=== PATIENT | female | born 1945 | race Caucasian/White ===

== ENCOUNTER 2016-06-18 21:58 | Observation (INO) ==
[2016-06-18] MEDS ORDERED: Ipratropium/Albuterol Neb 3 ML IH ONE (22:16)
[2016-06-18] MEDS ORDERED: Ipratropium/Albuterol Neb 3 ML ONE (22:18)
[2016-06-18 22:57] LABS: Basophils % 0.2 %; Eosinophils % 0.7 %; Hematocrit 38.1 % (35.3-44.9); Hemoglobin 13.1 g/dL (11.5-15.4); Immature Granulocytes % 0.7 % (0-4); Lymphocytes # 1.5 K/mcL (0.6-4.6); Lymphocytes % 26.8 %; Mean Corpuscular HGB Conc 34.4 g/dL (31.6-35.5); Mean Corpuscular Hemoglobin 31.2 pg (28.0-33.3); Mean Corpuscular Volume 90.7 fL (83.0-100.0); Mean Platelet Volume 9.8 fL (9.4-12.4); Monocytes # 0.4 K/mcL (0.0-1.3); Monocytes % 6.7 %; Neutrophils # 3.6 K/mcL (1.6-8.9); Platelet Count 175 K/mcL (140-400); Red Cell Distribution Width 14.1 % (11.5-14.5); Segmented Neutrophils % 64.9 %
[2016-06-18 23:04] LABS: INR 1.1
[2016-06-18 23:07] LABS: Activated Partial Thrombo Time 31.8 Seconds (26.0-36.0)
--- NOTE | 2016-06-18 23:11 | Emergency Department Note ---
Disposition Clinical Impression: Acute exacerbation of chronic obstructive airways disease, Febrile illness Disposition: Admitted As Inpatient Condition: Fair Referrals: Solitario Simms MD [Primary Care Provider] - Forms: ED Satisfaction Letter Time of Disposition: 00:18 ([facility]) SOB HPI - General Chief Complaint: ED Shortness of Breath/Dyspnea Stated Complaint: productive cough, diarrhea Time Seen by Provider: 06/18/16 22:05 Source: patient Mode of arrival: ambulatory Limitations: no limitations Nursing Notes Reviewed: Yes Vital Signs Reviewed: Yes - History of Present Illness Approximate 4-6 weeks patient has been having fever chills cough congestion runny nose when she is on antibiotics he seemed to go away so she comes off Lasix seemed to recur she is seen her family physician multiple times for this she denies any diarrhea at this time she has had intermittent episode of diarrhea she denies any blurred vision double vision or loss of vision numbness tingling weakness recent weight gain or weight loss Pt Subjective Complaint: shortness of breath Onset (ago): week(s) (4-6) Context: recent illness, occurred during exertion Severity: moderate Consistency/Duration: intermittent, gradually worsening Improves with: oxygen, bronchodilators Worsens with: exertion, movement, inspiration Known history of: COPD, congestive heart failure Associated symptoms: Reports: fever, cough, wheezing, sputum production, diaphoresis. Denies: chest pain, pain with inspiration, orthopnea, lower extremity pain, polyuria, polydipsia, parasthesias, palpitations, hemoptysis, nausea/vomiting, syncope, abdominal pain, rash, sense of impending doom Treatment prior to arrival: oxygen, bronchodilator - Related Data Home Medications Medication Instructions Recorded Confirmed Allopurinol [Zyloprim 300 MG] 300 mg PO DAILY #0 12/11/14 06/18/16 Aspirin Enteric Coated [Aspirin EC] 81 mg PO DAILY 12/11/14 06/18/16 Lisinopril [Zestril] 20 mg PO DAILY #0 12/11/14 06/18/16 Albuterol Sulfate 1 inh PO TID 12/12/14 06/18/16 Colestipol HCl [Colestid] 2 tab PO DAILY #0 12/12/14 06/18/16 Primidone [Mysoline] 2 tab PO QPM #0 12/12/14 06/18/16 Proair Hfa 2 puff PO Q4HWA PRN 12/12/14 06/18/16 Ammonium Lactate [Amlactin] 0 gm TP TID 06/18/16 06/18/16 Budesonide/Formoterol 160/4.5 2 puff IH BIDR 06/18/16 06/18/16 [Symbicort 160/4.5] Cholecalciferol (D-3) [Vitamin D] 1,000 unit PO DAILY 06/18/16 06/18/16 Dicyclomine [Bentyl] 20 mg PO QID 06/18/16 06/18/16 FLUoxetine HCl [Fluoxetine HCl] 80 mg PO QDPC 06/18/16 06/18/16 FluocinoNIDE 0.05% CRM [Lidex] 1 appl TP QDPC 06/18/16 06/18/16 Fluticasone Propionate Nasal 50 mcg NS QDPC 06/18/16 06/18/16 [Flonase] Guaifenesin/Dm/Pseudoephedrine 1 each PO QID 06/18/16 06/18/16 [Capmist Dm Tablet] HYDROcodone/Acet 10/325 mg [[place] 1 tab PO Q8HR PRN 06/18/16 06/18/16 10-325 mg] Ipratropium/Albuterol Sulfate 4 gm IH QID 06/18/16 06/18/16 [Combivent Respimat Inhal [place]] Metoprolol Tartrate [Lopressor] 50 mg PO BID 06/18/16 06/18/16 Mv W-Ca/Iron/FA/Lutein/Hrb#179 1 each PO QDPC 06/18/16 06/18/16 [Jere Multivit For Women Caplet] Omeprazole [PriLOSEC] 40 mg PO DAILY 06/18/16 06/18/16 Ondansetron ODT [Zofran ODT] 4 mg SL Q4HR PRN 06/18/16 06/18/16 Pravastatin Sodium [Pravachol] 80 mg PO QDPC 06/18/16 06/18/16 Pregabalin [Lyrica] 225 mg PO BID 06/18/16 06/18/16 Psyllium [Metamucil Fiber Singles 1 packet PO TID 06/18/16 06/18/16 Packet] Quetiapine Fumarate [Seroquel] 50 mg PO QPM 06/18/16 06/18/16 Roflumilast [Daliresp] 500 mcg PO QDPC 06/18/16 06/18/16 Sucralfate [Carafate] 1 gm PO BID 06/18/16 06/18/16 Triamcinolone Acet 0.1% CRM 1 appl TP ONCE 06/18/16 06/18/16 [Kenalog] Previous Rx's Medication Instructions Recorded Magnesium Oxide [Mag-Ox] 400 mg PO BID #14 tablet 12/15/14 Allergies Allergy/AdvReac Type Severity Reaction Status Date / Time No Known Allergies Allergy Verified 04/27/16 16:18 All systems ED: reviewed and negative except as stated. Constitutional: Reports: fever, chills, weakness Eyes: Denies: eye pain, eye discharge ENT ED: Reports: congestion. Denies: ear pain, throat pain, dental pain Cardiovascular: Denies: chest pain, palpitations Respiratory: Reports: cough, dyspnea, wheezes, sputum production Gastrointestinal: Reports: nausea, vomiting. Denies: abdominal pain Genitourinary: Denies: urgency, dysuria, frequency Musculoskeletal: Denies: back pain, neck pain Integumentary: Denies: abrasion, lesions Neurological: Reports: weakness. Denies: headache Psychiatric: Denies: anxiety Endocrine: Reports: fatigue Hematological/Lymphatic: Denies: easy bleeding Allergic/Immunologic: Denies: facial swelling Past Medical History - Past Medical History Attestation: Yes The following information was validated with the patient. 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 - Social History Smoking Status: Former smoker Smokeless Tobacco Status: No Alcohol use: Reports: none Drug use: Reports: none Physical Exam - General Limitations: no limitations General appearance: alert, anxious, in distress - Head Head exam: atraumatic, normocephalic, normal inspection - Eye Eye exam: Present: normal appearance, PERRL, EOMI - ENT ENT exam: normal exam, normal oropharynx, mucous membranes moist, normal external ear exam - Neck Neck exam: Present: normal inspection, full ROM, trachea midline - Chest Chest inspection: Present: normal inspection, symmetric chest wall rise - Respiratory Respiratory exam: Present: normal lung sounds bilaterally - Cardiovascular Cardiovascular exam: Present: regular rate, normal rhythm, normal heart sounds - Abdominal Exam Abdominal exam: Present: soft, Non-Tender, normal bowel sounds - Extremities Exam Extremities exam: Present: normal inspection, full ROM, normal capillary refill. Absent: tenderness, joint swelling - Expanded Lower Extremity Exam Neurovascular/Tendon exam: Present: normal capillary refill, normal fine/light touch Gait: observed and normal - Back Exam Back exam: Present: normal inspection, full ROM. Absent: muscle spasm - Neurological Exam Neurological exam: Present: alert, oriented X3, CN II-XII intact - Psychiatric Psychiatric exam: Present: anxious - Skin Skin exam: Present: warm, intact, normal color, diaphoresis Course Course Narrative: Patient seen and examined patient was given a DuoNeb treatment 2 after evaluation IV was established she was given antibiotics patient was admitted transferred to [facility] stable condition spoke with family about findings noting that she has had symptoms off and on for 6 weeks the flu swab was negative strongly suspect etiology to be viral Vital Signs O2 Sat by Pulse Oximetry 99 06/18/16 21:58 Temperature 96.3 F L 06/18/16 22:14 Pulse Rate 93 06/18/16 23:14 Respiratory Rate 22 06/18/16 23:14 Blood Pressure 124/81 06/18/16 23:14 O2 Sat by Pulse Oximetry 96 06/18/16 23:14 Oxygen Delivery Oxygen Delivery Nasal Cannula Shortness of Breath/Dyspnea - Differential Diagnosis Likely: acute exacerbation of chronic obstructive airways disease, pneumonia, asthma with exacerbation - Medical Records Medical records reviewed: Yes I reviewed the patient's medical records. - Lab Data Lab results reviewed: Yes I reviewed the patient's lab results. Result diagrams: 06/18/16 22:36 06/18/16 22:36 Lab Results 06/18/16 06/18/16 06/18/16 Range/Units 22:36 22:36 22:36 WBC 5.5 (4.3-11.1) K/mcL RBC 4.20 (3.82-4.97) M/mcL Hgb 13.1 (11.5-15.4) g/dL Hct 38.1 (35.3-44.9) % MCV 90.7 (83.0-100.0) fL MCH 31.2 (28.0-33.3) pg MCHC 34.4 (31.6-35.5) g/dL RDW 14.1 (11.5-14.5) % Plt Count 175 (140-400) K/mcL MPV 9.8 (9.4-12.4) fL Immature Gran % 0.7 (0-4) % Seg Neutrophils % 64.9 % Lymphocytes % 26.8 % Monocytes % 6.7 % Eosinophils % 0.7 % Basophils % 0.2 % Neutrophils # 3.6 (1.6-8.9) K/mcL Lymphocytes # 1.5 (0.6-4.6) K/mcL Monocytes # 0.4 (0.0-1.3) K/mcL Eosinophils # 0.0 (0.0-0.6) K/mcL Basophils # 0.0 (0.0-0.2) K/mcL PT 12.0 (9.4-12.1) Seconds INR 1.1 APTT 31.8 (26.0-36.0) Seconds Sodium 141 (136-145) mEq/L Potassium 4.1 (3.5-4.5) mEq/L Chloride 107 (98-109) mEq/L Carbon Dioxide 20 (19-29) mEq/L BUN 8 (7-20) mg/dL Creatinine 0.91 (0.57-1.11) mg/dL Est GFR ( Amer) > 60 (> 60) Est GFR (Non-Af Amer) > 60 (> 60) BUN/Creatinine Ratio 9 (6-26) Glucose 123 H (70-99) mg/dL Calculated Osmolality 292 (280-300) Calcium 9.3 (8.6-10.8) mg/dL Troponin I (0-0.03) ng/mL B-Natriuretic Peptide (0-100) pg/mL 06/18/16 06/18/16 Range/Units 22:36 22:36 WBC (4.3-11.1) K/mcL RBC (3.82-4.97) M/mcL Hgb (11.5-15.4) g/dL Hct (35.3-44.9) % MCV (83.0-100.0) fL MCH (28.0-33.3) pg MCHC (31.6-35.5) g/dL RDW (11.5-14.5) % Plt Count (140-400) K/mcL MPV (9.4-12.4) fL Immature Gran % (0-4) % Seg Neutrophils % % Lymphocytes % % Monocytes % % Eosinophils % % Basophils % % Neutrophils # (1.6-8.9) K/mcL Lymphocytes # (0.6-4.6) K/mcL Monocytes # (0.0-1.3) K/mcL Eosinophils # (0.0-0.6) K/mcL Basophils # (0.0-0.2) K/mcL PT (9.4-12.1) Seconds INR APTT (26.0-36.0) Seconds Sodium (136-145) mEq/L Potassium (3.5-4.5) mEq/L Chloride (98-109) mEq/L Carbon Dioxide (19-29) mEq/L BUN (7-20) mg/dL Creatinine (0.57-1.11) mg/dL Est GFR ( Amer) (> 60) Est GFR (Non-Af Amer) (> 60) BUN/Creatinine Ratio (6-26) Glucose (70-99) mg/dL Calculated Osmolality (280-300) Calcium (8.6-10.8) mg/dL Troponin I 0.03 (0-0.03) ng/mL B-Natriuretic Peptide 516 H (0-100) pg/mL - Radiology Data Radiology results reviewed: Yes I reviewed the patient's radiology results. ITS Impressions Chest X-Ray 06/18/16 22:17 IMPRESSION: No acute cardiopulmonary disease. D/ / Sagar Hines MD / Sagar Hines MD Interpreting Provider: Sagar Hines MD - EKG Data EKG attestation: Yes I reviewed and interpreted this EKG. EKG results narrative: Sinus rhythm no ST segment elevation or T wave inversion noted rate 77 NV 160 QRS 137 QT 461 excess -36 Critical Care Time Critical Care Time: No
[2016-06-18 23:14] LABS: BUN/Creatinine Ratio 9 (6-26); Blood Urea Nitrogen 8 mg/dL (7-20); Calcium 9.3 mg/dL (8.6-10.8); Carbon Dioxide 20 mEq/L (19-29); Chloride 107 mEq/L (98-109); Glucose 123 mg/dL (70-99); Osmolality,Calculated 292 (280-300); Potassium 4.1 mEq/L (3.5-4.5); Sodium 141 mEq/L (136-145); eGFR For African Americans > 60 (> 60); eGFR For Non-African Americans > 60 (> 60)
[2016-06-18] MEDS ORDERED: 0.9 % Sodium Chloride 1,000 ML IVC SCH (23:45)
[2016-06-18] MEDS ORDERED: Azithromycin 500 MG in D5% in Water 250 ML IVPB ONE (23:58)
[2016-06-18] MEDS ORDERED: CefTRIAXone 1,000 MG in D5% in Water (Mini-Bag+) 100 ML IVPB STA (23:58)
[2016-06-19] MEDS ORDERED: Ondansetron ODT 4 MG TAB.RAPDIS SL PRN (01:35)
[2016-06-19] MEDS ORDERED: Naloxone 0.4 MG/ML INJ IVP PRN (01:35)
[2016-06-19] MEDS: Ipratropium/Albuterol Neb 3 ML IH SCH ×4 (05:27→23:47)
[2016-06-19 06:05] LABS: Basophils % 0.2 %; Eosinophils % 0.2 %; Hematocrit 38.8 % (35.3-44.9); Hemoglobin 13.3 g/dL (11.5-15.4); Immature Granulocytes % 1.3 % (0-4); Lymphocytes # 0.4 K/mcL (0.6-4.6); Lymphocytes % 9.8 %; Mean Corpuscular HGB Conc 34.3 g/dL (31.6-35.5); Mean Corpuscular Hemoglobin 31.4 pg (28.0-33.3); Mean Corpuscular Volume 91.5 fL (83.0-100.0); Mean Platelet Volume 10.1 fL (9.4-12.4); Monocytes # 0.1 K/mcL (0.0-1.3); Monocytes % 1.6 %; Neutrophils # 3.9 K/mcL (1.6-8.9); Platelet Count 161 K/mcL (140-400); Red Blood Count 4.24 M/mcL (3.82-4.97); Red Cell Distribution Width 14.3 % (11.5-14.5); Segmented Neutrophils % 86.9 %
[2016-06-19 06:11] LABS: Bilirubin,Urine Negative (Negative); Blood,Urine Moderate (Negative); Clarity,Urine Clear (Clear); Color,Urine Dark Yellow (Yellow); Glucose,Urine (UA) Normal (Normal); Ketones,Urine Negative (Negative); Leukocyte Esterase,Urine Negative (Negative); Nitrite,Urine Negative (Negative); PH,Urine 5.5 pH Units (5.0-8.0); Protein,Urine >=300 mg/dL (Neg-Trace); Specific Gravity,Urine >= 1.030 (1.010-1.025); Urobilinogen,Urine Normal (Normal)
[2016-06-19 06:17] LABS: BUN/Creatinine Ratio 10 (6-26); Blood Urea Nitrogen 10 mg/dL (7-20); Carbon Dioxide 18 mEq/L (19-29); Chloride 105 mEq/L (98-109); Glucose 209 mg/dL (70-99); Osmolality,Calculated 295 (280-300); Potassium 4.3 mEq/L (3.5-4.5); Sodium 140 mEq/L (136-145); eGFR For African Americans > 60 (> 60); eGFR For Non-African Americans 56 (> 60)
[2016-06-19] MEDS: *HR* HYDROcodone/Acet 10/325 mg TABLET PO PRN ×2 (06:34→15:48)
[2016-06-19 06:52] LABS: Granular Casts,Urine Few per lpf (None Seen); Hyaline Casts,Urine Few per lpf (None-Few)
[2016-06-19 06:53] LABS: Bacteria,Urine Few per hpf (None-Few); Mucus,Urine Moderate (Few); Squamous Epithelial Cell,Urine Moderate per lpf (None-Few)
[2016-06-19 06:54] LABS: RBC,Urine 0-3 per hpf (0-3); WBC,Urine 0-3 per hpf (0-3)
[2016-06-19] MEDS ORDERED: (Roflumilast [Daliresp] 500 MCG) PO SCH (09:00)
[2016-06-19] MEDS ORDERED: Pregabalin 75 MG CAPSULE PO SCH (09:00)
[2016-06-19] MEDS ORDERED: [UNRECOGNIZED DRUG - OTHER] PO SCH (09:00)
[2016-06-19] MEDS ORDERED: COLESTIPOL HCL PO SCH (09:00)
[2016-06-19] MEDS: Aspirin Enteric Coated 81 MG Tablet PO SCH (09:02)
[2016-06-19] MEDS: Sucralfate 1 GM TABLET PO SCH ×2 (09:03→21:56)
[2016-06-19] MEDS: Fluticasone Propionate Nasal 50 MCG/SPRAY BOTTLE NS SCH (09:03)
[2016-06-19] MEDS: Magnesium Oxide 400 MG TABLET PO SCH ×2 (09:04→22:04)
[2016-06-19] MEDS: Psyllium 1 PACKET POWD.PACK PO SCH ×3 (09:04→21:58)
[2016-06-19] MEDS: Cholecalciferol (D-3) 1,000 UNIT TABLET PO SCH (09:07)
[2016-06-19] MEDS: FLUoxetine 20 MG CAPSULE PO SCH (09:07)
[2016-06-19] MEDS: Multivit/Ca/Min/Fe/FA 1 TAB TABLET PO SCH (09:07)
[2016-06-19] MEDS: Lisinopril 20 MG TABLET PO SCH (09:08)
[2016-06-19] MEDS: CefTRIAXone 1,000 MG in D5% in Water (Mini-Bag+) 100 ML IVPB SCH (09:10)
[2016-06-19] MEDS: Albuterol 2.5 MG/3 ML NEBULIZER IH PRN (09:12)
[2016-06-19] MEDS: Budesonide/Formoterol 160/4.5 MDI IH SCH ×2 (09:12→23:47)
[2016-06-19] MEDS: Ammonium Lactate 30 APPL/225 GM BOTTLE TP SCH ×3 (09:12→21:57)
[2016-06-19] MEDS: FluocinoNIDE 0.05% CRM 15 GM TUBE TP SCH (09:13)
--- NOTE | 2016-06-19 09:16 | Electrocardiograph Report ---
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
[2016-06-19] MEDS: Pregabalin 75 MG CAPSULE PO SCH ×2 (10:37→21:56)
--- NOTE | 2016-06-19 12:29 | Internal Med History&Physical ---
Date of Encounter: 06/19/16 Time of Encounter: 12:05 Assessment and Plan (1) Diarrhea Current visit: Yes Status: Acute Suspect viral gastroenteritis. Will continue with IV fluids and do further workup as needed. Qualifiers: Diarrhea type: unspecified type Qualified Code(s): R19.7 - Diarrhea, unspecified (2) Hypertension Current visit: No Status: Chronic Continue lisinopril and Lopressor. Qualifiers: Hypertension type: essential hypertension Qualified Code(s): I10 - Essential (primary) hypertension (3) Hypomagnesemia Current visit: No Status: Acute Magnesium level was 1.4 on 12/15/2014. We will recheck in a.m. (4) Acute exacerbation of chronic obstructive airways disease Current visit: Yes Status: Acute Continue Symbicort, DuoNeb's, and albuterol nebs with Solu-Medrol. Internal Medicine - H&P: HPI Chief complaint: Cough and diarrhea Admitted From: Home Plans for Post Hospital Care: Home History of present illness: Ms. Boston is a 71 year old female who came to emergency room stating she developed diarrhea the evening of June 17. It seemed to worsen over the next 24 hours. She denies melena or hematochezia. She had nausea but no vomiting. She had a cough productive of slight amount of yellow sputum. She had sensation of fevers and chills with a headache. She was evaluated in emergency room and felt to have exacerbation of COPD. She was admitted to [facility] floor for ongoing care needs. She was hospitalized last at [facility] November 2014 with diarrhea. She has a diagnosis of irritable bowel syndrome. She has had cholecystectomy and has rare GERD symptoms. She denies other disorders of her liver or exocrine pancreas. Past Med Surg Social Fam HX - Past Medical History Medical history: arthritis, asthma, COPD, CVA, diabetes, GERD, hyperlipidemia, hypertension, kidney stones, RA, renal disease, other Psychiatric history: anxiety, depression - Past Surgical History Surgical History: cataract, cholecystectomy, hysterectomy, orthopedic, other, other - Social History Smoking Status: Former smoker Smokeless Tobacco Status: No Alcohol use: none Drug use: none - Family History Mother Living Status: Age at : 76 Cause of : ANURESYM Hx Family Cardiac Disorders: Yes (OPEN HEART SURGERY) Hx Family Endocrine Disorder: Yes Internal Medicine - H&P: Meds Allopurinol [Zyloprim 300 MG] 300 mg PO DAILY #0 12/11/14 [History] Aspirin Enteric Coated [Aspirin EC] 81 mg PO DAILY 12/11/14 [History] Lisinopril [Zestril] 20 mg PO DAILY #0 12/11/14 [History] Albuterol Sulfate 1 inh PO TID 12/12/14 [History] Colestipol HCl [Colestid] 2 tab PO DAILY #0 12/12/14 [History] Primidone [Mysoline] 2 tab PO QPM #0 12/12/14 [History] Proair Hfa 2 puff PO Q4HWA PRN 12/12/14 [History] Magnesium Oxide [Mag-Ox] 400 mg PO BID #14 tablet 12/15/14 [Rx] Ammonium Lactate [Amlactin] 0 gm TP TID 06/18/16 [History] Budesonide/Formoterol 160/4.5 [Symbicort 160/4.5] 2 puff IH BIDR 06/18/16 [ History] Cholecalciferol (D-3) [Vitamin D] 1,000 unit PO DAILY 06/18/16 [History] Dicyclomine [Bentyl] 20 mg PO QID 06/18/16 [History] FLUoxetine HCl [Fluoxetine HCl] 80 mg PO QDPC 06/18/16 [History] FluocinoNIDE 0.05% CRM [Lidex] 1 appl TP QDPC 06/18/16 [History] Fluticasone Propionate Nasal [Flonase] 50 mcg NS QDPC 06/18/16 [History] Guaifenesin/Dm/Pseudoephedrine [Capmist Dm Tablet] 1 each PO QID 06/18/16 [ History] HYDROcodone/Acet 10/325 mg [[place] 10-325 mg] 1 tab PO Q8HR PRN 06/18/16 [History ] Ipratropium/Albuterol Sulfate [Combivent Respimat Inhal [place]] 4 gm IH QID 06/18 [History] Metoprolol Tartrate [Lopressor] 50 mg PO BID 06/18/16 [History] Mv W-Ca/Iron/FA/Lutein/Hrb#179 [Jere Multivit For Women Caplet] 1 each PO QDPC 06/18/16 [History] Omeprazole [PriLOSEC] 40 mg PO DAILY 06/18/16 [History] Ondansetron ODT [Zofran ODT] 4 mg SL Q4HR PRN 06/18/16 [History] Pravastatin Sodium [Pravachol] 80 mg PO QDPC 06/18/16 [History] Pregabalin [Lyrica] 225 mg PO BID 06/18/16 [History] Psyllium [Metamucil Fiber Singles Packet] 1 packet PO TID 06/18/16 [History] Quetiapine Fumarate [Seroquel] 50 mg PO QPM 06/18/16 [History] Roflumilast [Daliresp] 500 mcg PO QDPC 06/18/16 [History] Sucralfate [Carafate] 1 gm PO BID 06/18/16 [History] Triamcinolone Acet 0.1% CRM [Kenalog] 1 appl TP ONCE 06/18/16 [History] Allergies No Known Allergies Allergy (Verified 04/27/16 16:18) All Systems PM: A 10-system review of systems was performed and is negative for pertinent findings except as documented above in the HPI. Review of systems: Gen.: Her weight has decreased slightly from 104.734 kg on 12/15/2014 to 100.244 kg at present. Cardiovascular: She has a history of hypertension and thinks she may have heart failure. She denies NM, angina, anginal equivalents, or known DVT or pulmonary embolus. Respiratory: She smoked from age [age] up to 2 packs per day. She wears oxygen at home almost . GI: As per history of present illness : She has had urinary retention in the past but it resolved. She has had kidney stones in the past. She denies other kidney or bladder disorders Neurologic: She claims a CVA occurred in 2007 but with only transient dysphasia with right arm weakness. She had near-complete recovery except for stuttering and memory loss. She has a diagnosis of tremor and takes primidone. She denies seizures. Endocrine: She has "borderline diabetes". Hemoglobin A1c was 5.2% on 2015. She has hyperlipidemia but no known thyroid disease. Hematology/oncology: She denies blood disorders, cancers or anemia Psychiatric: She has anxiety and depression but no other mental health disorders. [place] skeletal. She claims DJD, rheumatoid arthritis and history of gout. - Constitutional Vitals: Temp Pulse Resp BP Pulse Ox 98.4 F 85 18 132/74 100 06/19/16 11:15 06/19/16 11:15 06/19/16 11:15 06/19/16 11:15 06/19/16 11:15 Exam: General: She is a well-developed well-nourished female who appears in minimal distress at present time HEENT: Head is atraumatic, normocephalic. Eyes: EOMI. There is no scleral icterus. Mouth: Mucosa is moist. Neck: Supple and nontender. There is no thyromegaly or adenopathy noted. Heart: Regular without murmurs gallops or ectopics. Lungs: No wheezes or crackles are heard. Abdomen: Soft and nontender. No masses or guarding are noted. Extremities: There is no cyanosis edema or clubbing noted. Dorsalis pedis and posterior tibial pulses are trace - 1+ palpable bilaterally. Neurologic: Mental status: She is talkative and a good historian. Cranial nerves: Smile is symmetric. Forehead wrinkles bilaterally. Tongue protrudes midline. EOMI. She is hard of hearing. Motor: There is no pronator drift. Cerebellar: Finger to nose is intact bilaterally. Skin: Warm and dry Internal Med - H&P Results - Labs CBC & Chem 7: 06/19/16 04:43 06/19/16 04:43 Labs: Short CBC 06/19/16 Range/Units 04:43 WBC 4.5 (4.3-11.1) K/mcL Hgb 13.3 (11.5-15.4) g/dL Hct 38.8 (35.3-44.9) % Plt Count 161 (140-400) K/mcL Neutrophils # 3.9 (1.6-8.9) K/mcL BMP 06/19/16 04:43 Sodium 140 Potassium 4.3 Chloride 105 Carbon Dioxide 18 L BUN 10 Creatinine 0.98 Glucose 209 H Calcium 9.0 Urine 06/19/16 Range/Units 05:40 Urine Color Dark Yellow (Yellow) Urine Clarity Clear (Clear) Urine pH 5.5 (5.0-8.0) pH Units Ur Specific [place] >= 1.030 H (1.010-1.025) Urine Protein >=300 H (Neg-Trace) mg/dL Urine Glucose (UA) Normal (Normal) mg/dL
[2016-06-19] MEDS: 0.9 % Sodium Chloride 1,000 ML IVC SCH (13:38)
[2016-06-19] MEDS ORDERED: Azithromycin 500 MG in D5% in Water 250 ML IVPB SCH (14:00)
[2016-06-19] MEDS: PredniSONE 10 MG TABLET PO SCH (17:24)
[2016-06-19] MEDS: Primidone 50 MG TABLET PO SCH (17:26)
[2016-06-19] MEDS: [UNRECOGNIZED DRUG - OTHER] PO SCH (22:04)
[2016-06-19] MEDS: COLESTIPOL HCL PO SCH (22:04)
[2016-06-20] MEDS: 0.9 % Sodium Chloride 1,000 ML IVC SCH (01:25)
[2016-06-20] MEDS: *HR* HYDROcodone/Acet 10/325 mg TABLET PO PRN ×2 (01:35→23:55)
[2016-06-20] MEDS: Ipratropium/Albuterol Neb 3 ML IH SCH ×4 (04:03→21:42)
[2016-06-20 06:46] LABS: Basophils % 0.1 %; Eosinophils % 0.1 %; Hematocrit 33.1 % (35.3-44.9); Hemoglobin 11.3 g/dL (11.5-15.4); Immature Granulocytes % 0.7 % (0-4); Lymphocytes # 1.3 K/mcL (0.6-4.6); Mean Corpuscular HGB Conc 34.1 g/dL (31.6-35.5); Mean Corpuscular Hemoglobin 31.7 pg (28.0-33.3); Mean Platelet Volume 10.1 fL (9.4-12.4); Monocytes # 0.7 K/mcL (0.0-1.3); Monocytes % 10.9 %; Neutrophils # 4.6 K/mcL (1.6-8.9); Platelet Count 159 K/mcL (140-400); Red Blood Count 3.56 M/mcL (3.82-4.97); Red Cell Distribution Width 14.5 % (11.5-14.5); Segmented Neutrophils % 68.2 %
[2016-06-20 07:01] LABS: Alanine Aminotransferase 21 Units/L (0-55); Albumin 3.6 g/dL (3.5-5.0); Albumin/Globulin Ratio 1.6 (1.1-2.2); Alkaline Phosphatase 78 Units/L (38-126); Aspartate Amino Transferase 29 Units/L (5-34); BUN/Creatinine Ratio 15 (6-26); Bilirubin,Total 0.4 mg/dL (0.2-1.2); Blood Urea Nitrogen 14 mg/dL (7-20); Calcium 8.4 mg/dL (8.6-10.8); Carbon Dioxide 20 mEq/L (19-29); Chloride 110 mEq/L (98-109); Globulin 2.3 g/dL (2.4-3.5); Glucose 141 mg/dL (70-99); Magnesium 1.6 mg/dL (1.6-2.6); Osmolality,Calculated 295 (280-300); Sodium 141 mEq/L (136-145); Total Protein 5.9 g/dL (6.0-8.3); Uric Acid 5.3 mg/dL (2.6-6.0); eGFR For African Americans > 60 (> 60); eGFR For Non-African Americans 58 (> 60)
[2016-06-20] MEDS: (Roflumilast [Daliresp] 500 MCG) PO SCH (08:34)
[2016-06-20] MEDS: COLESTIPOL HCL PO SCH ×2 (08:34→22:45)
[2016-06-20] MEDS: Ammonium Lactate 30 APPL/225 GM BOTTLE TP SCH ×3 (08:35→23:17)
[2016-06-20] MEDS: FLUoxetine 20 MG CAPSULE PO SCH (08:35)
[2016-06-20] MEDS: PredniSONE 10 MG TABLET PO SCH ×2 (08:35→17:33)
[2016-06-20] MEDS: Aspirin Enteric Coated 81 MG Tablet PO SCH (08:36)
[2016-06-20] MEDS: Pregabalin 75 MG CAPSULE PO SCH ×2 (08:36→22:00)
[2016-06-20] MEDS: Multivit/Ca/Min/Fe/FA 1 TAB TABLET PO SCH (08:37)
[2016-06-20] MEDS: Magnesium Oxide 400 MG TABLET PO SCH ×2 (08:37→22:40)
[2016-06-20] MEDS: FluocinoNIDE 0.05% CRM 15 GM TUBE TP SCH (08:37)
[2016-06-20] MEDS: CefTRIAXone 1,000 MG in D5% in Water (Mini-Bag+) 100 ML IVPB SCH (08:38)
[2016-06-20] MEDS: Lisinopril 20 MG TABLET PO SCH (08:38)
[2016-06-20] MEDS: Cholecalciferol (D-3) 1,000 UNIT TABLET PO SCH (08:38)
[2016-06-20] MEDS: Sucralfate 1 GM TABLET PO SCH ×2 (08:39→17:33)
[2016-06-20] MEDS: [UNRECOGNIZED DRUG - OTHER] PO SCH (08:40)
[2016-06-20] MEDS: Fluticasone Propionate Nasal 50 MCG/SPRAY BOTTLE NS SCH (08:40)
[2016-06-20] MEDS: Psyllium 1 PACKET POWD.PACK PO SCH ×4 (08:40→22:42)
[2016-06-20] MEDS: Budesonide/Formoterol 160/4.5 MDI IH SCH ×2 (09:58→21:37)
--- NOTE | 2016-06-20 10:46 | Internal Med Progress Note ---
Date of Encounter: 06/20/16 Time of Encounter: 10:35 - Assessment and plan (1) Diarrhea Current Visit: Yes Status: Acute Assessment and plan: June 20. Improved. Suspect viral gastroenteritis. Discontinue Rocephin and Zithromax to avoid complication. Qualifiers: Diarrhea type: unspecified type Qualified Code(s): R19.7 - Diarrhea, unspecified (2) Hypertension Current Visit: No Status: Chronic Assessment and plan: June 20. Continue lisinopril and Lopressor. Qualifiers: Hypertension type: essential hypertension Qualified Code(s): I10 - Essential (primary) hypertension (3) Hypomagnesemia Current Visit: No Status: Acute Assessment and plan: June 20. Magnesium level normal at 1.6. (4) Acute exacerbation of chronic obstructive airways disease Current Visit: Yes Status: Acute Assessment and plan: June 20. Continue Symbicort, DuoNeb's, albuterol nebs and prednisone. We will discontinue antibiotics. Anticipate discharge home tomorrow. - Subjective Interval history: June 20. Her diarrhea has improved. She still feels dyspneic. - Constitutional Vitals: Temp Pulse Resp BP Pulse Ox 97.8 F 68 18 112/56 100 06/20/16 10:24 06/20/16 10:24 06/20/16 10:24 06/20/16 10:24 06/20/16 10:24 Exam: She has prolonged expiratory phase and mild diffuse wheezing. Heart tones are difficult to hear. Extremities show no edema. I reviewed her medications and lab results. Internal Medicine: Result - Labs CBC & Chem 7: 06/20/16 05:51 06/20/16 05:51 Labs: Short CBC 06/20/16 Range/Units 05:51 WBC 6.7 (4.3-11.1) K/mcL Hgb 11.3 L D (11.5-15.4) g/dL Hct 33.1 L (35.3-44.9) % Plt Count 159 (140-400) K/mcL Neutrophils # 4.6 (1.6-8.9) K/mcL BMP 06/20/16 05:51 Sodium 141 Potassium 4.0 Chloride 110 H Carbon Dioxide 20 BUN 14 Creatinine 0.95 Glucose 141 H Calcium 8.4 L Liver Function 06/20/16 Range/Units 05:51 Total Bilirubin 0.4 (0.2-1.2) mg/dL AST 29 (5-34) Units/L ALT 21 (0-55) Units/L Alkaline Phosphatase 78 (38-126) Units/L Albumin 3.6 (3.5-5.0) g/dL - ABG Interpretation ABG results: PT/INR, D-dimer PT 12.0 Seconds (9.4-12.1) 06/18/16 22:36 Consult Discharge Plan - Plan Referrals: Solitario Simms MD [Primary Care Provider] - 1 week
[2016-06-20] MEDS ORDERED: [UNRECOGNIZED DRUG - OTHER] PO PRN (13:14)
[2016-06-20] MEDS: Primidone 50 MG TABLET PO SCH (17:33)
[2016-06-20] MEDS: Albuterol 2.5 MG/3 ML NEBULIZER IH PRN (21:37)
[2016-06-21] MEDS: Ipratropium/Albuterol Neb 3 ML IH SCH ×4 (04:52→21:53)
[2016-06-21 05:50] LABS: Basophils % 0.3 %; Eosinophils % 0.4 %; Hematocrit 35.3 % (35.3-44.9); Hemoglobin 11.7 g/dL (11.5-15.4); Immature Granulocytes % 1.2 % (0-4); Lymphocytes % 25.6 %; Mean Corpuscular HGB Conc 33.1 g/dL (31.6-35.5); Mean Corpuscular Hemoglobin 31.1 pg (28.0-33.3); Mean Corpuscular Volume 93.9 fL (83.0-100.0); Mean Platelet Volume 9.8 fL (9.4-12.4); Monocytes # 0.7 K/mcL (0.0-1.3); Monocytes % 8.6 %; Neutrophils # 4.9 K/mcL (1.6-8.9); Platelet Count 197 K/mcL (140-400); Red Blood Count 3.76 M/mcL (3.82-4.97); Red Cell Distribution Width 14.5 % (11.5-14.5); Segmented Neutrophils % 63.9 %
[2016-06-21 06:18] LABS: Magnesium 1.7 mg/dL (1.6-2.6); Potassium 3.9 mEq/L (3.5-4.5)
[2016-06-21] MEDS: Cholecalciferol (D-3) 1,000 UNIT TABLET PO SCH (08:23)
[2016-06-21] MEDS: FLUoxetine 20 MG CAPSULE PO SCH (08:23)
[2016-06-21] MEDS: Pregabalin 75 MG CAPSULE PO SCH ×2 (08:23→21:14)
[2016-06-21] MEDS: Lisinopril 20 MG TABLET PO SCH (08:23)
[2016-06-21] MEDS: Multivit/Ca/Min/Fe/FA 1 TAB TABLET PO SCH (08:24)
[2016-06-21] MEDS: Sucralfate 1 GM TABLET PO SCH ×2 (08:24→18:03)
[2016-06-21] MEDS: PredniSONE 10 MG TABLET PO SCH ×2 (08:24→17:57)
[2016-06-21] MEDS: Aspirin Enteric Coated 81 MG Tablet PO SCH (08:24)
[2016-06-21] MEDS: Magnesium Oxide 400 MG TABLET PO SCH (08:24)
[2016-06-21] MEDS: Psyllium 1 PACKET POWD.PACK PO SCH ×4 (08:24→21:15)
[2016-06-21] MEDS: (Roflumilast [Daliresp] 500 MCG) PO SCH (08:29)
[2016-06-21] MEDS: Fluticasone Propionate Nasal 50 MCG/SPRAY BOTTLE NS SCH (08:31)
[2016-06-21] MEDS: Ammonium Lactate 30 APPL/225 GM BOTTLE TP SCH ×3 (08:36→21:17)
[2016-06-21] MEDS: FluocinoNIDE 0.05% CRM 15 GM TUBE TP SCH (08:36)
--- NOTE | 2016-06-21 10:18 | Internal Med Progress Note ---
Date of Encounter: 06/21/16 Time of Encounter: 10:05 - Assessment and plan (1) Diarrhea Current Visit: Yes Status: Acute Assessment and plan: June 20. Improved. Suspect viral gastroenteritis. Discontinue Rocephin and Zithromax to avoid complication. June 21. Send stool for lactoferrin and C. difficile. We will hold magnesium oxide for now Qualifiers: Diarrhea type: unspecified type Qualified Code(s): R19.7 - Diarrhea, unspecified (2) Hypertension Current Visit: No Status: Chronic Assessment and plan: June 20. Continue lisinopril and Lopressor. June 21. Change lisinopril to Cozaar to avoid ACEI induced cough. Continue Lopressor. Qualifiers: Hypertension type: essential hypertension Qualified Code(s): I10 - Essential (primary) hypertension (3) Hypomagnesemia Current Visit: No Status: Acute Assessment and plan: June 20. Magnesium level normal at 1.6. June 21. We will hold magnesium oxide to avoid diarrhea (4) Acute exacerbation of chronic obstructive airways disease Current Visit: Yes Status: Acute Assessment and plan: June 20. Continue Symbicort, DuoNeb's, albuterol nebs and prednisone. We will discontinue antibiotics. Anticipate discharge home tomorrow. June 21. Will increase prednisone and continue Symbicort, DuoNeb, and when necessary albuterol nebs. - Subjective Interval history: June 20. Her diarrhea has improved. She still feels dyspneic. June 21. She states her diarrhea has worsened again. She still feels dyspneic although slightly improved from yesterday. - Constitutional Vitals: Temp Pulse Resp BP Pulse Ox 97.8 F 71 18 126/65 98 06/21/16 06:43 06/21/16 06:43 06/21/16 06:43 06/21/16 06:43 06/21/16 04:52 Exam: She has prolonged expiratory phase with wheezing mostly in the anterior upper airway/trachea. No inspiratory crackles are heard. Extremities show no edema. I reviewed her medications and lab results. Internal Medicine: Result - Labs CBC & Chem 7: 06/21/16 05:35 06/21/16 05:35 Labs: Short CBC 06/21/16 Range/Units 05:35 WBC 7.7 (4.3-11.1) K/mcL Hgb 11.7 (11.5-15.4) g/dL Hct 35.3 (35.3-44.9) % Plt Count 197 (140-400) K/mcL Neutrophils # 4.9 (1.6-8.9) K/mcL BMP 06/21/16 05:35 Sodium 139 Potassium 3.9 Chloride 106 Carbon Dioxide 22 BUN 23 H Creatinine 1.09 Glucose 103 H Calcium 9.0 - ABG Interpretation ABG results: PT/INR, D-dimer PT 12.0 Seconds (9.4-12.1) 06/18/16 22:36 Consult Discharge Plan - Plan Referrals: Solitario Simms MD [Primary Care Provider] - 1 week
[2016-06-21] MEDS: *HR* HYDROcodone/Acet 10/325 mg TABLET PO PRN (10:30)
[2016-06-21] MEDS: Budesonide/Formoterol 160/4.5 MDI IH SCH ×2 (11:09→21:53)
[2016-06-21] MEDS: COLESTIPOL HCL PO SCH ×2 (11:34→21:17)
[2016-06-21] MEDS: Primidone 50 MG TABLET PO SCH (17:59)
[2016-06-22] MEDS: Ipratropium/Albuterol Neb 3 ML IH SCH ×2 (03:42→09:54)
[2016-06-22] MEDS: Sucralfate 1 GM TABLET PO SCH (06:01)
[2016-06-22 08:02] VITALS: BP 136/80
[2016-06-22] MEDS: Psyllium 1 PACKET POWD.PACK PO SCH ×2 (08:30→13:30)
[2016-06-22] MEDS: Fluticasone Propionate Nasal 50 MCG/SPRAY BOTTLE NS SCH (08:30)
[2016-06-22] MEDS: Aspirin Enteric Coated 81 MG Tablet PO SCH (08:31)
[2016-06-22] MEDS: Pregabalin 75 MG CAPSULE PO SCH (08:31)
[2016-06-22] MEDS: Multivit/Ca/Min/Fe/FA 1 TAB TABLET PO SCH (08:32)
[2016-06-22] MEDS: FLUoxetine 20 MG CAPSULE PO SCH (08:32)
[2016-06-22] MEDS: Cholecalciferol (D-3) 1,000 UNIT TABLET PO SCH (08:33)
[2016-06-22] MEDS: PredniSONE 10 MG TABLET PO SCH (08:33)
[2016-06-22] MEDS: (Roflumilast [Daliresp] 500 MCG) PO SCH (08:34)
[2016-06-22] MEDS: COLESTIPOL HCL PO SCH (08:34)
[2016-06-22] MEDS: Ammonium Lactate 30 APPL/225 GM BOTTLE TP SCH ×2 (08:42→13:30)
[2016-06-22] MEDS: FluocinoNIDE 0.05% CRM 15 GM TUBE TP SCH (08:42)
--- NOTE | 2016-06-22 09:43 | Discharge Summary ---
Date of Encounter: 06/22/16 Time of Encounter: 09:30 - Discharge Diagnosis (1) Diarrhea Priority: Primary Status: Acute Qualifiers: Diarrhea type: unspecified type Qualified Code(s): R19.7 - Diarrhea, unspecified (2) Acute exacerbation of chronic obstructive airways disease Priority: Secondary Status: Acute (3) Hypertension Priority: Secondary Status: Chronic Qualifiers: Hypertension type: essential hypertension Qualified Code(s): I10 - Essential (primary) hypertension (4) Hypomagnesemia Priority: Secondary Status: Resolved - Discharge Medications Prescriptions: Losartan Potassium [Cozaar] 50 mg PO DAILY #30 tab PredniSONE 20 mg PO BIDWM #6 tablet Home Medications: Allopurinol [Zyloprim 300 MG] 300 mg PO DAILY #0 12/11/14 [History] Aspirin Enteric Coated [Aspirin EC] 81 mg PO DAILY 12/11/14 [History] Albuterol Sulfate 1 inh PO TID 12/12/14 [History] Colestipol HCl [Colestid] 2 tab PO DAILY #0 12/12/14 [History] Primidone [Mysoline] 2 tab PO QPM #0 12/12/14 [History] Proair Hfa 2 puff PO Q4HWA PRN 12/12/14 [History] Ammonium Lactate [Amlactin] 0 gm TP TID 06/18/16 [History] Budesonide/Formoterol 160/4.5 [Symbicort 160/4.5] 2 puff IH BIDR 06/18/16 [ History] Cholecalciferol (D-3) [Vitamin D] 1,000 unit PO DAILY 06/18/16 [History] Dicyclomine [Bentyl] 20 mg PO QID 06/18/16 [History] FLUoxetine HCl [Fluoxetine HCl] 80 mg PO QDPC 06/18/16 [History] FluocinoNIDE 0.05% CRM [Lidex] 1 appl TP QDPC 06/18/16 [History] Fluticasone Propionate Nasal [Flonase] 50 mcg NS QDPC 06/18/16 [History] Guaifenesin/Dm/Pseudoephedrine [Capmist Dm Tablet] 1 each PO QID 06/18/16 [ History] HYDROcodone/Acet 10/325 mg [[place] 10-325 mg] 1 tab PO Q8HR PRN 06/18/16 [History ] Ipratropium/Albuterol Sulfate [Combivent Respimat Inhal [place]] 4 gm IH QID 06/18 [History] Metoprolol Tartrate [Lopressor] 50 mg PO BID 06/18/16 [History] Mv W-Ca/Iron/FA/Lutein/Hrb#179 [[place] Multivit For Women Caplet] 1 each PO QDPC 06/18/16 [History] Omeprazole [PriLOSEC] 40 mg PO DAILY 06/18/16 [History] Ondansetron ODT [Zofran ODT] 4 mg SL Q4HR PRN 06/18/16 [History] Pravastatin Sodium [Pravachol] 80 mg PO QDPC 06/18/16 [History] Pregabalin [Lyrica] 225 mg PO BID 06/18/16 [History] Quetiapine Fumarate [Seroquel] 50 mg PO QPM 06/18/16 [History] Roflumilast [Daliresp] 500 mcg PO QDPC 06/18/16 [History] Sucralfate [Carafate] 1 gm PO BID 06/18/16 [History] Triamcinolone Acet 0.1% CRM [Kenalog] 1 appl TP ONCE 06/18/16 [History] Losartan Potassium [Cozaar] 50 mg PO DAILY #30 tab 06/22/16 [Rx] PredniSONE 20 mg PO BIDWM #6 tablet 06/22/16 [Rx] Psyllium [Metamucil Fiber Singles Packet] 1 packet PO TID PRN #0 06/22/16 [Rx] Allergies/Adverse Reactions: Allergies No Known Allergies Allergy (Verified 04/27/16 16:18) Date of admission: 06/19/16 01:10 Primary care physician: Solitario Simms MD - Patient Status Disposition: Home, Self-Care Condition: Fair Overall status at discharge: patient is progressing back to baseline - Discharge Instructions Follow Up With: Solitario Simms MD [Primary Care Provider] - 1 week - Diet and Activity Activity: resume usual activities as tolerated, wear oxygen at all times Diet: advance to your usual diet Hospital course: Ms. Boston is a 71 year old female who came to emergency room stating she developed diarrhea the evening of June 17. It seemed to worsen over the next 24 hours. She denies melena or hematochezia. She had nausea but no vomiting. She had a cough productive of slight amount of yellow sputum. She had sensation of fevers and chills with a headache. She was evaluated in emergency room and felt to have exacerbation of COPD. She was admitted to [facility] for ongoing care needs. Initial orders were written by the emergency room physician. I saw her on June 19 and performed the history and physical. She was given IV fluids. Her diarrhea lessened significantly during her hospital stay. I discontinued her magnesium oxide to avoid worsening the diarrhea. Her magnesium level was normal at 1.7 on 06/21/2016. She was given steroids and her COPD was improved by time of discharge. She will continue with prednisone for 3 additional days after discharge for COPD exacerbation. On June 22 I felt she was stable for discharge home. She will follow with her PCP Dr. Simms within 1 week. - Time Spent with Patient Total time spent providing and/or coordinating discharge services: - Constitutional Vitals: Temp Pulse Resp BP Pulse Ox 97.3 F L 70 18 136/80 99 06/22/16 08:00 06/22/16 08:00 06/22/16 08:00 06/22/16 08:00 06/22/16 08:00
[2016-06-22] MEDS: Budesonide/Formoterol 160/4.5 MDI IH SCH (09:54)
== END 2016-06-22 15:33 | disposition home or self-care (01) ==
LOC: EMEROOPIK 21:58 → INPPIK 21:58
PROVIDERS: ADMIT Internal Medicine; ATTEND Internal Medicine

== ENCOUNTER 2019-01-05 20:58 | Observation (INO) ==
[2019-01-05] MEDS ORDERED: Ondansetron 4 MG/2 ML VIAL IVP ONE (21:08)
[2019-01-05] MEDS ORDERED: *HR* HYDROmorphone (PF) 1 MG/ML SYRINGE IVP ONE (21:08)
[2019-01-05] MEDS ORDERED: 0.9 % Sodium Chloride 1,000 ML IVC ONE (21:13)
[2019-01-05] MEDS ORDERED: Ipratropium/Albuterol Neb 3 ML IH ONE (21:15)
[2019-01-05] MEDS ORDERED: methylPREDNISolone 125 MG/2 ML VIAL IVP ONE (21:15)
[2019-01-05 21:33] LABS: Basophils % 0.1 %; Eosinophils # 0.1 K/mcL (0.0-0.6); Eosinophils % 0.5 %; Hematocrit 40.8 % (35.3-44.9); Hemoglobin 14.1 g/dL (11.5-15.4); Immature Granulocytes % 2.6 % (0-4); Lymphocytes # 0.5 K/mcL (0.6-4.6); Lymphocytes % 5.9 %; Mean Corpuscular HGB Conc 34.6 g/dL (31.6-35.5); Mean Corpuscular Hemoglobin 31.9 pg (28.0-33.3); Mean Corpuscular Volume 92.3 fL (83.0-100.0); Mean Platelet Volume 10.4 fL (9.4-12.4); Monocytes # 0.4 K/mcL (0.0-1.3); Monocytes % 4.8 %; Neutrophils # 7.9 K/mcL (1.6-8.9); Platelet Count 176 K/mcL (140-400); Red Blood Count 4.42 M/mcL (3.82-4.97); Red Cell Distribution Width 13.5 % (11.5-14.5); Segmented Neutrophils % 86.1 %; White Blood Count 9.2 K/mcL (4.3-11.1)
[2019-01-05 21:36] LABS: INR 1.1; Prothrombin Time 12.2 Seconds (9.4-12.1)
[2019-01-05 21:39] LABS: Activated Partial Thrombo Time 33.2 Seconds (26.0-36.0)
[2019-01-05 21:49] LABS: Troponin I < 0.03 ng/mL (< 0.04)
[2019-01-05 21:50] LABS: BUN/Creatinine Ratio 19 (6-26); Blood Urea Nitrogen 20 mg/dL (8-23); Calcium 9.3 mg/dL (8.6-10.3); Carbon Dioxide 28 mEq/L (23-29); Chloride 97 mEq/L (98-107); Glucose 111 mg/dL (70-105); Osmolality,Calculated 283 (280-300); Potassium 4.4 mEq/L (3.5-5.1); Sodium 135 mEq/L (136-145); eGFR For African Americans 60 (> 60); eGFR For Non-African Americans 49 (> 60)
[2019-01-05 21:51] LABS: Albumin/Globulin Ratio 1.5 (1.1-2.2); Bilirubin,Direct 0.1 mg/dL (0.0-0.2); Bilirubin,Indirect 0.3 mg/dL (0.0-1.0); Bilirubin,Total 0.4 mg/dL (0.3-1.0); Globulin 2.7 g/dL (2.4-3.5); Total Protein 6.7 g/dL (6.4-8.9)
[2019-01-05 22:09] LABS: Bilirubin,Urine Negative (Negative); Blood,Urine Negative (Negative); Clarity,Urine Clear (Clear); Color,Urine Yellow (Yellow); Glucose,Urine (UA) Normal (Normal); Ketones,Urine Negative (Negative); Leukocyte Esterase,Urine Negative (Negative); Nitrite,Urine Negative (Negative); Protein,Urine Negative (Neg-Trace); Urobilinogen,Urine Normal (Normal)
[2019-01-05] MEDS ORDERED: Azithromycin 500 MG in 0.9 % Sodium Chloride 250 ML IVPB ONE (23:43)
[2019-01-05] MEDS ORDERED: cefTRIAXone 1,000 MG in Water for inj. (sterile) 10 ML IVP ONE (23:43)
[2019-01-06] MEDS ORDERED: Ondansetron 4 MG/2 ML VIAL IVP PRN (00:24)
[2019-01-06] MEDS ORDERED: MOM Conc 10 ML UD.LIQ PO PRN (00:24)
[2019-01-06] MEDS ORDERED: Mag Hydrox/Al Hydrox/Simeth 30 ML UDC PO PRN (00:24)
[2019-01-06] MEDS ORDERED: Naloxone 0.4 MG/ML INJ IVP PRN (00:24)
[2019-01-06] MEDS ORDERED: 0.9 % Sodium Chloride 1,000 ML IVC SCH (00:24)
[2019-01-06] MEDS ORDERED: Acetaminophen 325 MG TABLET PO PRN (00:24)
[2019-01-06] MEDS: traMADol 50 MG TABLET PO PRN ×2 (03:18→08:56)
[2019-01-06 04:52] LABS: Hematocrit 36.6 % (35.3-44.9); Hemoglobin 12.4 g/dL (11.5-15.4); Immature Granulocytes % 1.4 % (0-4); Lymphocytes # 0.2 K/mcL (0.6-4.6); Lymphocytes % 5.3 %; Mean Corpuscular HGB Conc 33.9 g/dL (31.6-35.5); Mean Corpuscular Hemoglobin 31.7 pg (28.0-33.3); Mean Corpuscular Volume 93.6 fL (83.0-100.0); Mean Platelet Volume 10.5 fL (9.4-12.4); Monocytes # 0.1 K/mcL (0.0-1.3); Monocytes % 1.4 %; Platelet Count 120 K/mcL (140-400); Red Blood Count 3.91 M/mcL (3.82-4.97); Red Cell Distribution Width 13.6 % (11.5-14.5); Segmented Neutrophils % 91.9 %; White Blood Count 4.2 K/mcL (4.3-11.1)
[2019-01-06 04:54] LABS: Neutrophils # 3.9 K/mcL (1.6-8.9)
[2019-01-06 05:15] LABS: Calcium 8.6 mg/dL (8.6-10.3); Potassium 4.5 mEq/L (3.5-5.1)
[2019-01-06] MEDS: Sucralfate 1 GM TABLET PO SCH ×2 (06:23→17:12)
[2019-01-06] MEDS: Isosorbide MONOnitrate (24 HR) 30 MG TAB.ER.24H PO SCH (08:56)
[2019-01-06] MEDS: Lactobacillus 1 EACH CAP.SPRINK PO SCH ×2 (08:57→19:59)
[2019-01-06] MEDS: Pregabalin 75 MG CAPSULE PO SCH ×2 (08:57→19:58)
[2019-01-06] MEDS: Aspirin Enteric Coated 81 MG Tablet PO SCH (08:57)
[2019-01-06] MEDS: Lisinopril 20 MG TABLET PO SCH (08:57)
[2019-01-06] MEDS: Roflumilast [Daliresp] 500 MCG PO SCH (08:58)
[2019-01-06] MEDS: Budesonide/Formoterol 160/4.5 1 PUFF INH IH SCH ×2 (09:27→22:08)
[2019-01-06] MEDS: Azithromycin 500 MG in 0.9 % Sodium Chloride 250 ML IVPB SCH (09:46)
[2019-01-06] MEDS: Primidone 50 MG TABLET PO SCH (17:12)
[2019-01-06] MEDS: *HR* HYDROcodone/Acet 10/325 mg TABLET PO PRN (17:12)
[2019-01-06] MEDS ORDERED: Primidone 50 MG TABLET PO SCH (18:00)
[2019-01-06] MEDS ORDERED: cefTRIAXone 1,000 MG in Water for inj. (sterile) 10 ML IVP SCH (22:00)
[2019-01-07] MEDS: *HR* HYDROcodone/Acet 10/325 mg TABLET PO PRN ×2 (04:40→13:14)
[2019-01-07 04:51] LABS: Basophils % 0.2 %; Eosinophils # 0.1 K/mcL (0.0-0.6); Eosinophils % 2.1 %; Hemoglobin 11.7 g/dL (11.5-15.4); Immature Granulocytes % 1.4 % (0-4); Lymphocytes # 1.5 K/mcL (0.6-4.6); Mean Corpuscular HGB Conc 32.5 g/dL (31.6-35.5); Mean Corpuscular Hemoglobin 30.7 pg (28.0-33.3); Mean Corpuscular Volume 94.5 fL (83.0-100.0); Mean Platelet Volume 10.4 fL (9.4-12.4); Monocytes # 0.4 K/mcL (0.0-1.3); Monocytes % 8.8 %; Neutrophils # 2.2 K/mcL (1.6-8.9); Platelet Count 158 K/mcL (140-400); Red Blood Count 3.81 M/mcL (3.82-4.97); Red Cell Distribution Width 13.9 % (11.5-14.5); Segmented Neutrophils % 51.5 %; White Blood Count 4.2 K/mcL (4.3-11.1)
[2019-01-07 05:10] LABS: Alanine Aminotransferase 13 Units/L (7-52); Albumin 3.7 g/dL (3.5-5.7); Albumin/Globulin Ratio 1.3 (1.1-2.2); Alkaline Phosphatase 91 Units/L (34-104); Aspartate Amino Transferase 17 Units/L (13-39); BUN/Creatinine Ratio 19 (6-26); Bilirubin,Total 0.3 mg/dL (0.3-1.0); Blood Urea Nitrogen 20 mg/dL (8-23); Calcium 8.7 mg/dL (8.6-10.3); Carbon Dioxide 25 mEq/L (23-29); Chloride 103 mEq/L (98-107); Globulin 2.8 g/dL (2.4-3.5); Glucose 122 mg/dL (70-105); Lipase 79 Units/L (11-82); Magnesium 1.6 mg/dL (1.6-2.6); Osmolality,Calculated 288 (280-300); Potassium 4.2 mEq/L (3.5-5.1); Sodium 137 mEq/L (136-145); Total Protein 6.5 g/dL (6.4-8.9); eGFR For African Americans > 60 (> 60); eGFR For Non-African Americans 52 (> 60)
[2019-01-07] MEDS ORDERED: *HR* Enoxaparin 40 MG/0.4 ML SYRINGE SQ SCH (06:00)
[2019-01-07] MEDS: Sucralfate 1 GM TABLET PO SCH (06:06)
[2019-01-07] MEDS: Aspirin Enteric Coated 81 MG Tablet PO SCH (08:05)
[2019-01-07] MEDS: Primidone 50 MG TABLET PO SCH (08:06)
[2019-01-07] MEDS: Lisinopril 20 MG TABLET PO SCH (08:06)
[2019-01-07] MEDS: Lactobacillus 1 EACH CAP.SPRINK PO SCH (08:06)
[2019-01-07] MEDS: Pregabalin 75 MG CAPSULE PO SCH (08:06)
[2019-01-07] MEDS: Azithromycin 500 MG in 0.9 % Sodium Chloride 250 ML IVPB SCH (08:06)
[2019-01-07] MEDS: Isosorbide MONOnitrate (24 HR) 30 MG TAB.ER.24H PO SCH (08:06)
[2019-01-07] MEDS: Roflumilast [Daliresp] 500 MCG PO SCH (08:07)
[2019-01-07] MEDS: Budesonide/Formoterol 160/4.5 1 PUFF INH IH SCH (08:54)
[2019-01-07] MEDS ORDERED: Magnesium Oxide 400 MG TABLET PO SCH (09:00)
[2019-01-07 09:47] LABS: Estimated Average Glucose 154 mg/dl
[2019-01-07 10:38] VITALS: BP 108/68
== END 2019-01-07 14:00 | disposition home or self-care (01) ==
LOC: EMEROOPIK 20:58 → INPPIK 20:58
PROVIDERS: ADMIT Internal Medicine; ATTEND Internal Medicine